=== PATIENT | male | born 1955 | race Caucasian/White ===

== ENCOUNTER 2020-06-06 09:42 | Outpatient (CLI) | payer MEDICARE ==
--- NOTE | 2020-06-06 11:46 | RAD ---
CERVICAL SPINE 5 VIEWS: Date: 06/06/2020 HISTORY: Cervical spondylosis without myelopathy. FINDINGS: C7 and T1 are partially obscured on the lateral view. Odontoid and C1 are partially obscured on the A P open-mouth views. Very markedly severe disc osteophytosis with marked disc space narrowing at C6-C7. No significant pre vertebral soft tissue swelling. No abnormal translation between flexion and extension, although there is very limited motion at C6-C7. Minute anterolisthesis of C5 on C6 without abnormal translation. IMPRESSION: Significant multilevel disc osteophytosis and facet arthrosis. No abnormal translation between flexio n and extension. POS: [facility]
== END 2020-06-06 09:43 | disposition home or self-care (01) ==
LOC: BICRAD 09:42
PROVIDERS: ATTEND Specialist
DX: M47.812 Spondylosis without myelopathy or radiculopathy, cervical region (principal); M25.78 Osteophyte, vertebrae
CPT/HCPCS: 72050

== ENCOUNTER 2020-12-08 09:36 | Outpatient (CLI) | payer MEDICARE | END 2020-12-08 09:37 | disposition home or self-care (01) | LOC: MRI 09:36 | PROVIDERS: ATTEND Nurse Practitioner Family | DX: M47.812 Spondylosis without myelopathy or radiculopathy, cervical region (principal) | CPT/HCPCS: 72141 ==